=== PATIENT | female | born 1970 | race Two or more races ===

== ENCOUNTER 2022-02-15 06:46 | Day surgery (SDC) | payer OTHER ==
[~2022-02-15] VITALS: Ht 149.9 cm; Wt 59.0 kg
[2022-02-15] MEDS ORDERED: PERCOCET 5-3251 EACH PO (10:29)
[2022-02-15] MEDS ORDERED: IBU600 MG PO (10:29)
[2022-02-15] MEDS ORDERED: MORGIDOX100 MG PO (10:30)
== END 2022-02-15 15:00 | disposition home or self-care (01) ==
LOC: CIR.AMB 06:46
PROVIDERS: ATTEND Obstetrics & Gynecology
DX: D06.0 Carcinoma in situ of endocervix (principal); Z20.822 Contact with and (suspected) exposure to COVID-19; E78.5 Hyperlipidemia, unspecified; Z86.16 Personal history of COVID-19

== ENCOUNTER 2022-05-08 09:45 | Inpatient (IN) | payer OTHER ==
[~2022-05-08] VITALS: Ht 149.9 cm; Wt 60.8 kg
[~2022-05-08 09:45] MED LIST: IBU600 MG PO; MORGIDOX100 MG PO; PERCOCET 5-3251 EACH PO
[2022-05-11] MEDS ORDERED: ULTRACET PO (08:52)
[2022-05-11] MEDS ORDERED: NAPROXEN500 MG PO (08:53)
== END 2022-05-11 10:26 | disposition home or self-care (01) | DRG 743 ==
LOC: EDSTATUS 09:45 → ADM 09:45 → O/R 05-10 08:30 → SURG 05-10 09:45 → OB/GYN 05-10 15:03
PROVIDERS: ADMIT Obstetrics & Gynecology; ATTEND Obstetrics & Gynecology
PROC: 0UT7FZZ Resection of Bilateral Fallopian Tubes, Via Natural or Artificial Opening With Percutaneous Endoscopic Assistance (ICD-10-PCS; 2022-05-10)
PROC: 0UT2FZZ Resection of Bilateral Ovaries, Via Natural or Artificial Opening With Percutaneous Endoscopic Assistance (ICD-10-PCS; 2022-05-10)
PROC: 0TJB8ZZ Inspection of Bladder, Via Natural or Artificial Opening Endoscopic (ICD-10-PCS; 2022-05-10)
PROC: 0UT9FZZ Resection of Uterus, Via Natural or Artificial Opening With Percutaneous Endoscopic Assistance (ICD-10-PCS; principal; 2022-05-10 11:30)
DX: N80.03 Adenomyosis of the uterus (principal); N83.321 Acquired atrophy of right fallopian tube; N83.322 Acquired atrophy of left fallopian tube